=== PATIENT | female | born 1940 | race Native Hawaiian/Other Pacific Islander ===

== ENCOUNTER 2017-03-08 12:52 | Emergency (ER) | payer MEDICARE, OTHER ==
[~2017-03-08] VITALS: Ht 157.5 cm; Wt 65.0 kg
[2017-03-08] MEDS ORDERED: VALS160T2 PO (13:34)
[2017-03-08] MEDS ORDERED: ATOR20TA86 PO (13:34)
[2017-03-08] MEDS ORDERED: CLON1 PO (13:34)
[2017-03-08] MEDS ORDERED: ENTA200 PO (13:34)
[2017-03-08] MEDS ORDERED: CARB1TAB18 PO (13:34)
[2017-03-08] MEDS ORDERED: OxyCODONE HCL/ACETAMINOPHEN 5-325 MG TABLET PO ONE (15:00)
[2017-03-08 15:44] VITALS: BP 139/67
== END 2017-03-08 15:45 | disposition home or self-care (01) ==
LOC: EMS 12:53
DX: S22.31XA Fracture of one rib, right side, initial encounter for closed fracture (principal); G20 Parkinson's disease; E78.00 Pure hypercholesterolemia, unspecified; W18.39XA Other fall on same level, initial encounter; Y93.89 Activity, other specified; Y92.89 Other specified places as the place of occurrence of the external cause; Y99.8 Other external cause status
CPT/HCPCS: 71101; 99285

== ENCOUNTER 2019-07-08 22:56 | Emergency (ER) | payer MEDICARE, OTHER ==
[~2019-07-08] VITALS: Ht 152.4 cm; Wt 59.5 kg
[~2019-07-08 22:56] MED LIST: ATOR20TA86 PO; CARB1TAB18 PO; CLON1TAB13 PO; ENTA200 PO; VALS160T2 PO
[2019-07-08] MEDS ORDERED: STAL150 PO (23:11)
[2019-07-08] MEDS ORDERED: VALS80TA2 PO (23:11)
[2019-07-08] MEDS ORDERED: CARB1TAB35 PO (23:11)
[2019-07-09] MEDS ORDERED: ACETAMINOPHEN 500 MG TABLET PO ONE (00:45)
[2019-07-09 03:32] VITALS: BP 145/75
== END 2019-07-09 03:39 | disposition home or self-care (01) ==
LOC: EMS 22:57
DX: S20.212A Contusion of left front wall of thorax, initial encounter (principal); E78.00 Pure hypercholesterolemia, unspecified; G20 Parkinson's disease; Z79.899 Other long term (current) drug therapy; W01.198A Fall on same level from slipping, tripping and stumbling with subsequent striking against other object, initial encounter; Y93.89 Activity, other specified; Y92.89 Other specified places as the place of occurrence of the external cause; Y99.8 Other external cause status
CPT/HCPCS: 71101

== ENCOUNTER 2019-10-29 13:02 | Emergency (ER) | payer MEDICARE, OTHER ==
[~2019-10-29] VITALS: Ht 152.4 cm; Wt 59.1 kg
[~2019-10-29 13:02] MED LIST changes: -CARB1TAB18 PO; +CARB1TAB35 PO; -CLON1TAB13 PO; -ENTA200 PO; +STAL150 PO; -VALS160T2 PO; +VALS80TA2 PO
[2019-10-29] MEDS ORDERED: ASCO500 PO (13:21)
[2019-10-29] MEDS ORDERED: ESCI10TA PO (13:21)
[2019-10-29] MEDS ORDERED: CYAN500T65 PO (13:21)
[2019-10-29] MEDS ORDERED: BIOT5000 PO (13:21)
[2019-10-29] MEDS ORDERED: FERR-82 PO (13:21)
[2019-10-29] MEDS ORDERED: CHOL100018 PO (13:21)
[2019-10-29] MEDS ORDERED: ERGO2000 PO (13:21)
[2019-10-29] MEDS ORDERED: OMEG-50 PO (13:21)
[2019-10-29] MEDS ORDERED: LIDOCAINE 5% TRANSDERMAL PATCH TD ONE (16:30)
[2019-10-29] MEDS ORDERED: ACETAMINOPHEN 500 MG TABLET PO ONE (16:30)
[2019-10-29 17:35] VITALS: BP 111/48
== END 2019-10-29 17:57 | disposition home or self-care (01) ==
LOC: EMS 13:06
DX: S46.812A Strain of other muscles, fascia and tendons at shoulder and upper arm level, left arm, initial encounter (principal); M54.6 Pain in thoracic spine; E78.00 Pure hypercholesterolemia, unspecified; I10 Essential (primary) hypertension; G20 Parkinson's disease; Z79.899 Other long term (current) drug therapy; W18.39XA Other fall on same level, initial encounter; Y93.89 Activity, other specified; Y92.89 Other specified places as the place of occurrence of the external cause; Y99.8 Other external cause status
CPT/HCPCS: 72072